=== PATIENT | male | born 1970 | race Caucasian/White ===

== ENCOUNTER → 2017-12-16 13:27 | Outpatient (CLI) | payer MEDICARE ==
[2011-09-30 09:27] VITALS: BMI 21.2
== END | disposition home or self-care (01) ==
LOC: D.RT 13:27
DX: R91.8 Other nonspecific abnormal finding of lung field (principal)

== ENCOUNTER → 2020-04-02 12:12 | Outpatient (CLI) | payer OTHER ==
[2011-09-30 09:27] VITALS: BMI 21.2
== END | disposition home or self-care (01) ==
LOC: D.LABREF 12:12
PROVIDERS: ATTEND Internal Medicine Pulmonary Disease
DX: Z11.59 Encounter for screening for other viral diseases (principal)

== ENCOUNTER → 2020-04-04 12:59 | Outpatient (CLI) | payer OTHER ==
[2011-09-30 09:27] VITALS: BMI 21.2
== END | disposition home or self-care (01) ==
LOC: D.RAD 09-19 11:00 → D.RT 09-19 11:00 → D.RAD 09-19 11:45 → D.RT 03-19 10:30 → D.RAD 03-19 11:00 → D.RT 04-03 14:30
PROVIDERS: ATTEND Internal Medicine Pulmonary Disease
DX: J45.909 Unspecified asthma, uncomplicated (principal)